=== PATIENT | male | born 1985 | race Caucasian/White ===

== ENCOUNTER 2018-09-27 14:43 | Emergency (ER) | payer MEDICAID ==
[2018-09-27 14:50] VITALS: BP 106/80
--- NOTE | 2018-09-27 15:27 | EDPHY ---
General Time Seen by Provider: 09/27/18 15:14 Narrative: CLINICAL IMPRESSION: Dentalgia ASSESSMENT/PLAN: 32-year-old male presents to the emergency department with 2 days of right upper dental pain associated with a missing filling. Patient reports a filling fell out months ago and he has been dealing with intermittent pain since that time but has not been financially able to see a dentist. He has no clinical signs of a and you G, gingival buccal abscess, facial cellulitis, or Rodo's angina. He was placed on penicillin and given the phone number for [facility] emergency follow-up. Warning signs return to ED sooner discussed and discharge. DIFFERENTIAL DX: Periapical abscess, anug, gingival buccal abscess, facial cellulitis CHIEF COMPLAINT: Right upper dental pain HPI: 32-year-old male presents with 2 days of right upper dental pain. He reports he had a filling fall out several months ago, has not been able to see a dentist due to cost, and has had increased pain over last 2 days. No facial swelling, cheek swelling, purulent discharge into the mouth, tongue swelling or difficulty handling secretions. No reported fever or chills. PAST MEDICAL HISTORY: Chronic dental pain and dental caries See triage summary and nurse notes for addition applicable history REVIEW OF SYSTEMS: A full 10 point review of systems was negative except for those mentioned in HPI. PHYSICAL EXAM: General Appearance: Alert, oriented, appropriate, cooperative, NAD, well hydrated, non-toxic appearing, VSS, no hypoxia. HEENT: Oropharynx clear is no erythema or exudates, no tonsillar hypertrophy or asymmetry. Dental caries noted to multiple teeth, missing filling on right upper posterior molar. Surrounding tenderness to gingiva with no drainable abscess. Neck: Supple, nontender, no lymphadenopathy, no midline pain, FROM, no meningismus. MEDICAL DECISION MAKING: Patient was seen independently. Secondary supervising physician at time of evaluation was: Dr. Carney . Diagnosis: Periapical abscess, dentalgia . New, requires workup Summary: See Assessment and Plan for summary of ED visit Patient Progress: Stable for discharge. - History Smoking Status: Heavy smoker - Objective Vital Signs: Initial Vital Signs Temperature (C) 36.4 C 09/27/18 14:48 Heart Rate 110 H 09/27/18 14:48 Respiratory Rate 16 09/27/18 14:48 Blood Pressure 106/80 09/27/18 14:48 O2 Sat (%) 97 09/27/18 14:48 O2 Delivery Mode Room Air Allergies/Adverse Reactions: No Known Allergies Allergy (Unverified 09/27/18 14:49) Home Medications: Medication Instructions Recorded Penicillin V Potassium [Penicillin 500 mg PO QID #28 tab 09/27/18 VK] traMADol [Ultram 50 mg (*)] 50 mg PO Q4 #8 tab 09/27/18 Departure - Departure Disposition: Home, Routine, Self-Care Clinical Impression: Dental abscess Condition: Good Instructions: Dental Abscess (ED) Additional Instructions: DISCHARGE INSTRUCTIONS FROM YOUR DOCTOR Thank you for visiting our emergency department today. You were treated by a physician service assistant today and your case was reviewed with our ED Attending physician. Please keep in mind that discharge from the emergency department does not mean that there is nothing wrong - it simply means that we have not identified an emergency condition that requires further evaluation or treatment in the hospital. You should always plan to follow up with primary care for re- evaluation of your condition in the next 2-3 days. If you have been referred to a specialist, please call as soon as possible (today or tomorrow) to schedule your follow up appointment at the appropriate time. PLEASE CONTACT [facility] EMERGENCY NUMBER AT [phone]. THEY ARE USUALLY EFFICIENT AT GETTING PATIENT'S IN FOR NEXT DAY AVAILABILITY. YOU NEED TO HAVE YOUR TOOTH EVALUATED. PENICILLIN WAS PRESCRIBED TODAY. A SMALL AMOUNT OF PAIN MEDICATION WAS GIVEN. DO NOT DRIVE OR DRINK ALCOHOL WHILE TAKING NARCOTIC PAIN MEDICATION. PLEASE BE AWARE, NARCOTICS CAN CAUSE CONSTIPATION, LETHARGY, AND INCREASE YOUR RISK OF FALLING. DO NOT TAKE TYLENOL AT THE SAME TIME VICODIN OR PERCOCET. PLEASE CONTROL PAIN WITH IBUPROFEN OR TYLENOL. RETURN TO THE EMERGENCY DEPARTMENT FOR SIGNIFICANT FACIAL SWELLING, TONGUE SWELLING, INABILITY TO OPEN THE MOUTH, INABILITY TO TOLERATE YOUR SALIVA, TROUBLE BREATHING, HIGH FEVERS OR ANY OTHER CONCERN. People present with illnesses and injuries in different ways, and it is always possible that we have missed something. You may always return for re-evaluation if symptoms worsen or if they are not improving or if you develop new/different symptoms. Again, thank you for choosing our emergency department. We hope that you feel better. Referrals: NONE *PRIMARY CARE P,. [Primary Care Provider] - As per Instructions Prescriptions: Penicillin V Potassium [Penicillin VK] 500 mg PO QID #28 tab traMADol [Ultram 50 mg (*)] 50 mg PO Q4 #8 tab
== END 2018-09-27 15:33 | disposition home or self-care (01) ==
DX: K04.7 Periapical abscess without sinus (principal)

== ENCOUNTER 2018-10-07 13:01 | Emergency (ER) | payer MEDICAID ==
[2018-10-07 13:04] VITALS: BP 131/77
[2018-10-07] MEDS ORDERED: FLUORESCEIN SODIUM 1 MG STRIP OP ONE ×2 (13:16→13:17)
[2018-10-07] MEDS ORDERED: PROPARACAINE 0.5% 15 ML OPHT DROP ONE (13:16)
--- NOTE | 2018-10-07 13:16 | EDPHY ---
H & P Stated Complaint: FB L eye Time Seen by Provider: 10/07/18 13:09 HPI/ROS: CHIEF COMPLAINT: Left eye foreign body HISTORY OF PRESENT ILLNESS: Patient is a 33-year-old man who comes to the emergency department complaining of foreign body sensation in his left eye. 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 It is been painful and irritated ever since. Clear drainage. No vision changes. He wears glasses but no contacts. He denies other injury. Severity: Moderate Modifying factors: None REVIEW OF SYSTEMS: Constitutional: denies: chills, fever, recent illness, recent injury EENTM: denies: blurred vision, double vision, nose congestion Respiratory: denies: cough, shortness of breath Cardiac: denies: chest pain, irregular heart rate, lightheadedness, palpitations Gastrointestinal/Abdominal: denies: abdominal pain, diarrhea, nausea, vomiting, blood streaked stools Genitourinary: denies: dysuria, frequency, hematuria, pain Musculoskeletal: denies: joint pain, muscle pain Skin: denies: lesions, rash, jaundice, bruising Neurological: denies: headache, numbness, paresthesia, tingling, dizziness, weakness Hematologic/Lymphatic: denies: blood clots, easy bleeding, easy bruising Immunologic/allergic: denies: HIV/AIDS, transplant 10 systems reviewed and negative except as noted EXAM: GENERAL: Well-appearing, well-nourished and in no acute distress. HEAD: Atraumatic, normocephalic. EYES: Pupils equal round and reactive to light, extraocular movements intact, left eye with conjunctival injection, no foreign body seen on direct examination. ENT: TMs normal, nares patent, oropharynx clear without exudates. Moist mucous membranes. NECK: Normal range of motion, supple without lymphadenopathy or JVD. LUNGS: Breath sounds clear to auscultation bilaterally and equal. No wheezes rales or rhonchi. HEART: Regular rate and rhythm without murmurs, rubs or gallops. ABDOMEN: Soft, nontender, normoactive bowel sounds. No guarding, no rebound. No masses appreciated. BACK: No CVA tenderness, no spinal tenderness, step-offs or deformities EXTREMITIES: Normal range of motion, no pitting or edema. No clubbing or cyanosis. NEUROLOGICAL: Cranial nerves II through XII grossly intact. Normal speech, normal gait. 5/5 strength, normal movement in all extremities, normal sensation , normal reflexes PSYCH: Normal mood, normal affect. SKIN: Warm, dry, normal turgor, no visible rashes or lesions. Source: Patient Exam Limitations: No limitations - Personal History Current Tetanus/Diphtheria Vaccine: Yes Current Tetanus Diphtheria and Acellular Pertussis (TDAP): Yes - Medical/Surgical History Hx Asthma: No Hx Chronic Respiratory Disease: No Hx Diabetes: No Hx Cardiac Disease: No Hx Renal Disease: No Hx Cirrhosis: No Hx Alcoholism: No Hx HIV/AIDS: No Hx Splenectomy or Spleen Trauma: No Other PMH: denies - Family History Significant Family History: No pertinent family hx - Social History Smoking Status: Heavy smoker Alcohol Use: None Constitutional: Initial Vital Signs Temperature (C) 36.6 C 10/07/18 13:03 Heart Rate 104 H 10/07/18 13:03 Respiratory Rate 16 10/07/18 13:03 Blood Pressure 131/77 H 10/07/18 13:03 O2 Sat (%) 95 10/07/18 13:03 O2 Delivery Mode Room Air Allergies/Adverse Reactions: No Known Allergies Allergy (Unverified 10/07/18 13:05) Medical Decision Making ED Course/Re-evaluation: On examination with slit lamp there is a foreign body seen 8:00 a.m. On the cornea. It was removed easily with Q-tip. No rust ring remaining. Small ulcer present. No iritis or flare. Negative Edwina sign. Will start on Ocuflox drops. Will follow up with Ophthalmology. Differential Diagnosis: Partial list of the Differential diagnosis considered include but were not limited to; corneal abrasion, corneal foreign body, corneal ulceration, rust ring and although unlikely based on the history and physical exam, I also considered perforation, iritis. I discussed these differential diagnoses and the plan with the [patient] as well as the usual and expected course. The [ patient understands] that the diagnosis is provisional and that in medicine we are not always correct and that further workup is often warranted. Usual and customary warnings were given. All of the [patient's] questions were answered. The [patient was] instructed to return to the emergency department should the symptoms at all worsen or return, otherwise to followup with the physician as we discussed. - Data Points Medications Given: Discontinued Medications Fluorescein Sodium (Bioglo) 1 mg OP EDNOW ONE Stop: 10/07/18 13:18 Last Admin: 10/07/18 13:22 Dose: 1 mg Ofloxacin (Ocuflox 0.3% Opht Drops Prepack) 1 btl TAKEHOME EDNOW ONE Stop: 10/07/18 13:37 Last Admin: 10/07/18 13:46 Dose: 1 btl Proparacaine HCl (Alcaine 0.5%) 1 drops LEFTEYE ONCE ONE Stop: 10/07/18 13:19 Last Admin: 10/07/18 13:21 Dose: 1 drop Departure - Departure Disposition: Home, Routine, Self-Care Clinical Impression: Foreign body of left cornea Qualifiers: Encounter type: initial encounter Qualified Code(s): T15.02XA - Foreign body in cornea, left eye, initial encounter Corneal abrasion Qualifiers: Encounter type: initial encounter Laterality: left Qualified Code(s): S05.02XA - Injury of conjunctiva and corneal abrasion without foreign body, left eye, initial encounter Condition: Good Instructions: Ofloxacin (Into the eye), Eye Foreign Body (ED) Additional Instructions: Take the eyedrops 2 drops every 4 hr for 4 days Referrals: NONE *PRIMARY CARE P,. [Primary Care Provider] - As per Instructions CAROLINE GONZALEZ [Non Staff Provider (MD)] - 3-4 days, if not improved
[2018-10-07] MEDS ORDERED: PROPARACAINE 0.5% 15 ML OPHT DROP LEFTEYE ONE (13:18)
[2018-10-07] MEDS ORDERED: OFLOXACIN 0.3% SOLN PREPACK OPHT.BTL TAKEHOME ONE (13:36)
== END 2018-10-07 13:50 | disposition home or self-care (01) ==
PROC: 08C9XZZ Extirpation of Matter from Left Cornea, External Approach (ICD-10-PCS; principal; 2018-10-07)
DX: T15.02XA Foreign body in cornea, left eye, initial encounter (principal); X58.XXXA Exposure to other specified factors, initial encounter